=== PATIENT | male | born 1990 | race Native Hawaiian/Other Pacific Islander ===

== ENCOUNTER 2018-05-18 06:28 | Emergency (ER) | payer SELFPAY ==
[2018-05-18 07:22] LABS: Basophils % (Auto) 0.8 % (0.0-1.8); Eosinophils % (Auto) 0.2 % (0.0-4.3); Hemoglobin 14.8 gm/dl (11.8-15.2); Lymphocytes # (Auto) 0.7 K/mm3 (1.2-5.4); Lymphocytes % (Auto) 26.8 % (13.4-35.0); Mean Corpuscular HGB Conc 35 % (32-34); Mean Corpuscular Volume 90 fl (84-94); Monocytes # (Auto) 0.4 K/mm3 (0.0-0.8); Monocytes % (Auto) 15.5 % (0.0-7.3); Platelet Count 162 K/mm3 (140-440); Red Blood Count 4.69 M/mm3 (3.65-5.03); Red Cell Distribution Width 12.6 % (13.2-15.2)
[2018-05-18 07:46] LABS: BUN/Creatinine Ratio 16; Blood Urea Nitrogen 11 mg/dL (9-20); Calcium 9.3 mg/dL (8.4-10.2); Hemolysis Index 13
--- NOTE | 2018-05-18 07:49 | XRay Report ---
ROUTINE CHEST, TWO VIEWS: HISTORY: Shortness of breath, chest pain. The trachea, heart, mediastinal contour, lung piedra and bony thorax are unremarkable. IMPRESSION: Normal chest x-ray.
[2018-05-18 09:17] VITALS: BP 128/75
[2018-05-18] MEDS ORDERED: TYLENOL PO ONE (09:40)
[2018-05-18] MEDS ORDERED: IBUPROFEN PO ONE (09:40)
[2018-05-18] MEDS ORDERED: K-DUR PO ONE (09:43)
--- NOTE | 2018-05-18 09:44 | Emergency Department Report ---
ED Chest Pain HPI - General Chief Complaint: Chest Pain Stated Complaint: CP; SOB Time Seen by Provider: 05/18/18 08:33 Source: patient, RN notes reviewed Mode of arrival: Ambulatory Limitations: No Limitations - History of Present Illness Initial Comments: This is a 28-year-old gentleman who is not known to this provider previously, does not have a local primary care doctor, and reports no chronic medical conditions. The patient presents to the ER with 2-1/2 days of nontraumatic left-sided shoulder pain, right-sided shoulder pain, which intermittently radiates medially to the bilateral trapezius, and resolved chest tightness and shortness of breath. The symptoms started approximately 2 days ago, are intermittent, worse when sleeping, do not have an exertional component, and are now resolved. The patient reports that he does a lot of heavy work and lifting for work. He denies cocaine use, recent aspirin use, posterior leg pain, posterior leg swelling, DVT, pulmonary embolus risk factors. MD Complaint: chest pain -: Gradual, days(s) Onset: associated with drug use Pain Location: substernal Pain Radiation: other (left shoulder, right shoulder, than central chest) Severity: mild Severity scale (0 -10): 0 Quality: other (pressure and tightness) Consistency: intermittent Improves With: other Worsens With: other Context: other Aspirin use within the Past 7 Days: (0) No - Related Data On Oral Contraceptives: No Previous Rx's Medication Instructions Recorded Last Taken Type Acetaminophen [Tylenol Arthritis] 650 mg PO Q6HR PRN #30 tablet.er 05/18/18 Unknown Rx Ibuprofen [Motrin] 600 mg PO Q8H PRN #30 tablet 05/18/18 Unknown Rx Allergies Allergy/AdvReac Type Severity Reaction Status Date / Time No Known Allergies Allergy Unverified 05/18/18 06:45 Heart Score - HEART Score History: Slightly suspicious EKG: Non-specific Age: < 45 Risk factors: No known risk factors Troponin: < normal limit HEART Score: 1 - Critical Actions Critical Actions: 0-3 pts:0.9-1.7%risk of adverse cardiac event.Candidate for discharge ED Review of Systems ROS: Stated complaint: CP; SOB Other details as noted in HPI Constitutional: denies: fever Eyes: denies: eye discharge ENT: denies: epistaxis Respiratory: shortness of breath. denies: wheezing Cardiovascular: chest pain Gastrointestinal: denies: vomiting Genitourinary: denies: dysuria Musculoskeletal: arthralgia, myalgia Skin: denies: lesions Neurological: weakness Psychiatric: anxiety ED Past Medical Hx - Past Medical History Previous Medical History?: No - Surgical History Past Surgical History?: No - Social History Smoking Status: Current Every Day Smoker Substance Use Type: Alcohol, Marijuana - Medications Home Medications: Home Medications Medication Instructions Recorded Confirmed Last Taken Type Acetaminophen [Tylenol Arthritis] 650 mg PO Q6HR PRN #30 tablet.er 05/18/18 Unknown Rx Ibuprofen [Motrin] 600 mg PO Q8H PRN #30 tablet 05/18/18 Unknown Rx ED Physical Exam - General Limitations: No Limitations General appearance: alert, in no apparent distress - Head Head exam: Present: atraumatic, normocephalic - Eye Eye exam: Present: normal appearance, EOMI. Absent: nystagmus - ENT ENT exam: Present: normal exam, normal orophraynx, mucous membranes moist, normal external ear exam - Neck Neck exam: Present: normal inspection, full ROM. Absent: tenderness, meningismus - Respiratory Respiratory exam: Present: normal lung sounds bilaterally. Absent: respiratory distress - Cardiovascular Cardiovascular Exam: Present: regular rate, normal rhythm, normal heart sounds. Absent: bradycardia, tachycardia, irregular rhythm, systolic murmur, diastolic murmur, rubs, gallop - GI/Abdominal GI/Abdominal exam: Present: soft. Absent: distended, tenderness, guarding, rebound, rigid, pulsatile mass - Rectal Rectal exam: Present: deferred - Extremities Exam Extremities exam: Present: normal inspection, full ROM, other (2+ pulses noted in the bilateral upper, lower extremities. Compartments soft. No long bony tenderness. The pelvis is stable.). Absent: pedal edema, calf tenderness - Back Exam Back exam: Present: normal inspection, full ROM. Absent: tenderness, CVA tenderness (R), paraspinal tenderness, vertebral tenderness - Neurological Exam Neurological exam: Present: alert, oriented X3, CN II-XII intact, normal gait, other (Extraocular movements intact. Tongue midline. No facial droop. Facial sensation intact to light touch in the V1, V2, V3 distribution bilaterally. 5 and 5 strength in 4 extremities.. Sensation is intact to light touch in 4 extremities.). Absent: motor sensory deficit - Psychiatric Psychiatric exam: Present: anxious - Skin Skin exam: Present: warm, dry, intact, normal color. Absent: rash ED Course Vital Signs 05/18/18 05/18/18 06:42 09:16 Temperature 97.7 F 97.9 F Pulse Rate 70 64 Respiratory 18 16 Rate Blood Pressure 119/80 Blood Pressure 128/75 [Left] O2 Sat by Pulse 100 98 Oximetry - Reevaluation(s) Reevaluation #1: 05/18/18 09:52 The patient can follow up with the primary care doctor for incidental mild leukopenia as well as mild hypokalemia. JONNIE score - Jonnie Score Age > 65: (0) No Aspirin use within the Past 7 Days: (0) No 3 or more CAD Risk Factors: (0) No 2 or more Angina events in past 24 hrs: (0) No Known CAD with more than 50% Stenosis: (0) No Elevated Cardiac Markers: (0) No ST Deviation Greater than 0.5mm: (0) No JONNIE Score: 0 ED Medical Decision Making - Lab Data Result diagrams: 05/18/18 07:10 05/18/18 07:10 Vital Signs 05/18/18 05/18/18 06:42 09:16 Temperature 97.7 F 97.9 F Pulse Rate 70 64 Respiratory 18 16 Rate Blood Pressure 119/80 Blood Pressure 128/75 [Left] O2 Sat by Pulse 100 98 Oximetry Lab Results 05/18/18 05/18/18 Range/Units 07:10 07:10 WBC 2.7 L (4.5-11.0) K/mm3 RBC 4.69 (3.65-5.03) M/mm3 Hgb 14.8 (11.8-15.2) gm/dl Hct 42.0 (35.5-45.6) % MCV 90 (84-94) fl MCH 32 (28-32) pg MCHC 35 H (32-34) % RDW 12.6 L (13.2-15.2) % Plt Count 162 (140-440) K/mm3 Lymph % (Auto) 26.8 (13.4-35.0) % [place] % (Auto) 15.5 H (0.0-7.3) % Eos % (Auto) 0.2 (0.0-4.3) % Baso % (Auto) 0.8 (0.0-1.8) % Lymph # 0.7 L (1.2-5.4) K/mm3 [place] # 0.4 (0.0-0.8) K/mm3 Eos # 0.0 (0.0-0.4) K/mm3 Baso # 0.0 (0.0-0.1) K/mm3 Seg Neutrophils % 56.7 (40.0-70.0) % Seg Neutrophils # 1.5 L (1.8-7.7) K/mm3 Sodium 137 (137-145) mmol/L Potassium 3.4 L (3.6-5.0) mmol/L Chloride 99.4 (98-107) mmol/L Carbon Dioxide 26 (22-30) mmol/L Anion Gap 15 mmol/L BUN 11 (9-20) mg/dL Creatinine 0.7 L (0.8-1.5) mg/dL Estimated GFR > 60 ml/min BUN/Creatinine Ratio 16 % Glucose 102 H (75-100) mg/dL Calcium 9.3 (8.4-10.2) mg/dL Troponin T < 0.010 (0.00-0.029) ng/mL - EKG Data -: EKG Interpreted by Pr EKG shows normal: sinus rhythm, axis, intervals Rate: normal - EKG Data When compared to previous EKG there are: previous EKG unavailable 05/18/18 09:43 EKG 1 demonstrates normal sinus, normal axis, normal intervals, early repolarization, Q wave noted in lead 3, not consistent with ST elevation myocardial infarction, no prior EKG available for comparison, high left ventricular voltage. Repeat EKG appears to be unchanged. Neither EKG consistent with ST elevation myocardial infarction. - Radiology Data Radiology results: report reviewed, image reviewed X-ray the chest negative for acute disease - Medical Decision Making Differential diagnosis, including without limited to: Anxiety, sleep apnea, pneumonia, pericarditis, myocarditis, acute coronary syndrome Assessment and plan: 28-year-old gentleman with no pulmonary embolus or DVT risk factors, low risk by well's criteria, low risk by JONNIE score, low risk by heart score, perc negative, who is currently in no acute distress, was not currently experiencing pain, who is not tachycardic, or hypoxic. Objective laboratory testing unremarkable, physical examination unremarkable, x-ray of the chest unremarkable, patient resting comfortably in stretcher, and in no acute distress. Patient at low risk for major adverse cardiac event. Troponin negative 2, therefore pericarditis, myocarditis, acute coronary syndrome quite unlikely. Patient will be treated supportively, symptomatically, and he is medically suitable to follow-up with an outpatient primary care doctor or able bodied seaman. Critical care attestation.: If time is entered above; I have spent that time in minutes in the direct care of this critically ill patient, excluding procedure time. ED Disposition Clinical Impression: History of chest pain Disposition: TO HOME OR SELFCARE Is pt being admited?: No Does the pt Need Aspirin: No Condition: Good Instructions: Chest Pain (ED) Additional Instructions: Take the medications as needed/directed. Rest, avoid heavy lifting, and avoid strenuous physical activities. Follow up with the primary care doctor or able bodied seaman within the next 5-7 days. Return to the ER right away with new pain, worsened pain, migration of pain, productive vomiting, change in mental status, confusion, inability to speak, inability to breathe. Prescriptions: Acetaminophen [Tylenol Arthritis] 650 mg PO Q6HR PRN #30 tablet.er PRN Reason: Pain Ibuprofen [Motrin] 600 mg PO Q8H PRN #30 tablet PRN Reason: Pain Referrals: [facility] [Provider Group] - 3-5 Days [facility] [Provider Group] - 3-5 Days [facility] [Provider Group] - 3-5 Days
== END 2018-05-18 10:15 | disposition home or self-care (01) ==
LOC: ED 06:28
DX: R07.9 Chest pain, unspecified (principal); M25.512 Pain in left shoulder; F17.200 Nicotine dependence, unspecified, uncomplicated; F12.10 Cannabis abuse, uncomplicated
CPT/HCPCS: 36415; 71046; 80048; 84484; 85025; 93005; 93010

== ENCOUNTER 2019-07-21 19:47 | Emergency (ER) | payer SELFPAY ==
[2019-07-22] MEDS ORDERED: ASPIRIN 325 MG TAB PO ONE (03:13)
[2019-07-22 03:52] LABS: Basophils % (Auto) 0.8 % (0.0-1.8); Eosinophils # (Auto) 0.1 K/mm3 (0.0-0.4); Eosinophils % (Auto) 1.2 % (0.0-4.3); Hematocrit 42.2 % (35.5-45.6); Hemoglobin 14.8 gm/dl (11.8-15.2); Lymphocytes # (Auto) 2.5 K/mm3 (1.2-5.4); Lymphocytes % (Auto) 49.8 % (13.4-35.0); Mean Corpuscular HGB Conc 35 % (32-34); Mean Corpuscular Volume 90 fl (84-94); Monocytes # (Auto) 0.4 K/mm3 (0.0-0.8); Monocytes % (Auto) 7.7 % (0.0-7.3); Platelet Count 239 K/mm3 (140-440); Red Cell Distribution Width 12.9 % (13.2-15.2)
--- NOTE | 2019-07-22 03:52 | XRay Report ---
CHEST 2 VIEWS INDICATION / CLINICAL INFORMATION: chest pain. COMPARISON: 05/18/2018 FINDINGS: SUPPORT DEVICES: None. HEART / MEDIASTINUM: No significant abnormality. LUNGS / PLEURA: No significant pulmonary or pleural abnormality. No pneumothorax. ADDITIONAL FINDINGS: No significant additional findings. IMPRESSION: 1. No acute findings. No interval change. Signer Name: Sarah Acevedo MD Signed: 07/22/2019 3:47 AM Workstation Name: [id number]
[2019-07-22 04:21] LABS: Alanine Aminotransferase 16 units/L (7-56); Albumin 5.2 g/dL (3.9-5); BUN/Creatinine Ratio 14; Blood Urea Nitrogen 13 mg/dL (9-20); Hemolysis Index 7
--- NOTE | 2019-07-22 05:00 | Emergency Department Report ---
ED Chest Pain HPI - General Chief Complaint: Chest Pain Stated Complaint: SOB, SHORT STABBING PAIN IN CHEST Source: patient Mode of arrival: Ambulatory Limitations: No Limitations - History of Present Illness Initial Comments: Patient is a 29-year-old male with no past medical history who presents to the ED with complaint of acute onset persistent intermittent diffuse chest pain with a headache and shortness of breath for the last 2 months. Patient states that the pain initially started on the left side of the chest but is currently on the right side. Patient states that he was initially treated about 2 months ago for acute bronchitis with antibiotics which he dutifully finished. Patient states that the cough resolved but the chest wall pain has been persist ent and intermittent. Patient denies dizziness, fever and chills, nausea, vomiting, diarrhea, shortness of breath, change in vision, syncope, palpitations, back pain, heavy lifting or traumatic injury and abdominal pain. MD Complaint: chest pain, other (headache, shortness of breath) -: Gradual, month(s) (2) Onset: awoke with symptoms Pain Location: right chest Pain Radiation: none Severity: mild Severity scale (0 -10): 0 Quality: tightness, aching Consistency: intermittent Improves With: nothing Worsens With: nothing re: denies: nausea, vomting, dyspnea, sense of impending doom Other Symptoms: denies: cough, fever, syncope, rash, acid taste in mouth, leg swelling, palpitations, burping Treatments Prior to Arrival: none Aspirin use within the Past 7 Days: (0) No - Related Data On Oral Contraceptives: No Previous Rx's Medication Instructions Recorded Last Taken Type Acetaminophen [Tylenol Arthritis] 650 mg PO Q6HR PRN #30 tablet.er 05/18/18 Unknown Rx Ibuprofen [Motrin] 600 mg PO Q8H PRN #30 tablet 05/18/18 Unknown Rx Naproxen 500 mg PO Q12H PRN #24 tablet 07/22/19 Unknown Rx hydrOXYzine PAMOATE [Vistaril] 25 mg PO Q6HR PRN #30 capsule 07/22/19 Unknown Rx Allergies Allergy/AdvReac Type Severity Reaction Status Date / Time No Known Allergies Allergy Unverified 05/18/18 06:45 Heart Score - HEART Score History: Slightly suspicious EKG: Normal Age: < 45 Risk factors: No known risk factors Troponin: < normal limit HEART Score: 0 - Critical Actions Critical Actions: 0-3 pts:0.9-1.7%risk of adverse cardiac event.Candidate for discharge ED Review of Systems ROS: Stated complaint: SOB, SHORT STABBING PAIN IN CHEST Other details as noted in HPI Constitutional: denies: chills, fever Eyes: denies: eye pain, eye discharge, vision change ENT: denies: ear pain, throat pain Respiratory: shortness of breath. denies: cough, wheezing Cardiovascular: chest pain. denies: palpitations Endocrine: no symptoms reported Gastrointestinal: denies: abdominal pain, nausea, vomiting, diarrhea Genitourinary: denies: urgency, dysuria Musculoskeletal: denies: back pain, joint swelling, arthralgia Skin: denies: rash, lesions Neurological: headache. denies: weakness, paresthesias Psychiatric: denies: anxiety, depression Hematological/Lymphatic: denies: easy bleeding, easy bruising ED Past Medical Hx - Social History Smoking Status: Never Smoker Substance Use Type: Alcohol, Marijuana - Medications Home Medications: Home Medications Medication Instructions Recorded Confirmed Last Taken Type Acetaminophen [Tylenol Arthritis] 650 mg PO Q6HR PRN #30 tablet.er 05/18/18 Unknown Rx Ibuprofen [Motrin] 600 mg PO Q8H PRN #30 tablet 05/18/18 Unknown Rx Naproxen 500 mg PO Q12H PRN #24 tablet 07/22/19 Unknown Rx hydrOXYzine PAMOATE [Vistaril] 25 mg PO Q6HR PRN #30 capsule 07/22/19 Unknown Rx ED Physical Exam - General Limitations: No Limitations General appearance: alert, in no apparent distress - Head Head exam: Present: atraumatic, normocephalic, normal inspection - Eye Eye exam: Present: normal appearance, PERRL, EOMI Pupils: Present: normal accommodation - ENT ENT exam: Present: normal exam, normal orophraynx, mucous membranes moist, TM's normal bilaterally, normal external ear exam - Neck Neck exam: Present: normal inspection, full ROM - Respiratory Respiratory exam: Present: normal lung sounds bilaterally. Absent: respiratory distress, wheezes, rales, rhonchi, chest wall tenderness, accessory muscle use, decreased breath sounds - Cardiovascular Cardiovascular Exam: Present: regular rate, normal rhythm, normal heart sounds. Absent: systolic murmur, diastolic murmur, rubs, gallop - GI/Abdominal GI/Abdominal exam: Present: soft, normal bowel sounds. Absent: tenderness, guarding, hyperactive bowel sounds - Extremities Exam Extremities exam: Present: normal inspection, full ROM, normal capillary refill - Back Exam Back exam: Present: normal inspection, full ROM. Absent: tenderness, muscle spasm, paraspinal tenderness - Neurological Exam Neurological exam: Present: alert, oriented X3, CN II-XII intact, normal gait, reflexes normal - Psychiatric Psychiatric exam: Present: normal affect, normal mood - Skin Skin exam: Present: warm, dry, intact, normal color. Absent: rash ED Course Vital Signs 07/21/19 07/22/19 07/22/19 19:53 01:34 01:35 Temperature 97.8 F 97.9 F 97.9 F Pulse Rate 66 70 70 Respiratory 18 18 18 Rate Blood Pressure 132/87 138/97 Blood Pressure 138/97 [Left] O2 Sat by Pulse 96 100 100 Oximetry JONNIE score - Jonnie Score Age > 65: (0) No Aspirin use within the Past 7 Days: (0) No 3 or more CAD Risk Factors: (0) No 2 or more Angina events in past 24 hrs: (0) No Known CAD with more than 50% Stenosis: (0) No Elevated Cardiac Markers: (0) No ST Deviation Greater than 0.5mm: (0) No JONNIE Score: 0 ED Medical Decision Making - Lab Data Result diagrams: 07/22/19 03:22 07/22/19 03:22 - EKG Data EKG shows normal: sinus rhythm Rate: normal - EKG Data Interpretation: normal EKG 07/22/19 04:57 EKG shows normal sinus rhythm with ventricular rate of [address] or T wave abnormalities. - Radiology Data Radiology results: report reviewed, image reviewed Chest x-ray shows no acute cardiopulmonary abnormalities or pneumonitis. - Medical Decision Making This is a 29-year-old male with no past medical history, and who does not smoke cigarettes, and whose heart score is 0 and is PERC negative per Wells criteria presents to the ED with acute onset persistent intermittent right chest wall pain with headache and shortness of breath for the last 2 months but worse in the last 2 days. Patient states that his pain started about 2 months ago when he was diagnosed with acute bronchitis and was prescribed antibiotics which he took to completion but that his symptoms did not resolve and has been having persistent chest pain intermittently with a headache and shortness of breath. In the ED, patient is alert and oriented x3 and is not in distress with normal vital signs. The EKG shows normal sinus rhythm with a ventricular rate of [address] or T wave abnormalities. Chest x-ray shows no acute cardiopulmonary abnormalities or pneumonitis. All lab test results were reviewed and are all nonactionable including troponin levels. Given the fact that the patient has a heart score of 0 and is PERC negative, and also given the fact that all lab test results were unremarkable, imaging tests were normal and normal EKG findings, the patient symptoms are likely due to muscle strain of the chest wall versus anxiety. Patient has no chest pain or shortness of breath or headache at this time in the ED. Patient was discharged home on pain medications and was advised to follow-up with his primary care physician in 5 to 7 days for reevaluation or return to the ED immediately if symptoms get worse. - Differential Diagnosis CAD; Costochondritis; Muscle strain; pneumonia; Anxeity Critical care attestation.: If time is entered above; I have spent that time in minutes in the direct care of this critically ill patient, excluding procedure time. ED Disposition Clinical Impression: Acute nonspecific chest pain with low risk of coronary artery disease, Muscle strain of anterior chest wall, Anxiety as acute reaction to exceptional stress Disposition: DC-01 TO HOME OR SELFCARE Is pt being admited?: No Does the pt Need Aspirin: No Condition: Stable Instructions: Chest Pain (ED), Muscle Strain (ED), Costochondritis (ED) Additional Instructions: All lab test results are unremarkable, chest x-ray is normal and EKG also shows normal sinus rhythm. Therefore take medication with food, drink plenty of fluids and follow-up with your primary care physician in 5 to 7 days for reevalu ation. Return to the ED immediately if symptoms get worse. Prescriptions: Naproxen 500 mg PO Q12H PRN #24 tablet PRN Reason: Pain , Severe (7-10) hydrOXYzine PAMOATE [Vistaril] 25 mg PO Q6HR PRN #30 capsule PRN Reason: Anxiety Referrals: YADIEL GUADALUPE MD [Staff Physician] - 7-10 days Time of Disposition: 05:02 Print Language: PARAGUAYAN
[2019-07-22 05:23] VITALS: BP 128/81
== END 2019-07-22 05:23 | disposition home or self-care (01) ==
LOC: ED 19:47
DX: S39.012A Strain of muscle, fascia and tendon of lower back, initial encounter (principal); F41.9 Anxiety disorder, unspecified; R07.89 Other chest pain; F12.10 Cannabis abuse, uncomplicated; Z79.899 Other long term (current) drug therapy
CPT/HCPCS: 36415; 71046; 80053; 84484; 85025; 93005; 93010